=== PATIENT | female | born 1955 | race Caucasian/White ===

== ENCOUNTER 2019-07-01 08:16 | Inpatient (IN) | payer OTHER ==
[2019-06-20 10:43] LABS: ABSOLUTE BASOPHILS 0.1 thou/uL (0.0-0.2); ABSOLUTE EOSINOPHILS 0.2 thou/uL (0.0-0.7); ABSOLUTE LYMPHOCYTES 2.1 thou/uL (0.8-5.3); ABSOLUTE MONOCYTES 0.7 thou/uL (0.0-1.2); ABSOLUTE NEUTROPHILS 4.3 thou/uL (1.6-8.1); BASOPHILS 0.8 %; EOSINOPHILS 2.4 %; HEMATOCRIT 39.1 % (37.0-47.0); HEMOGLOBIN 13.2 gm/dL (12.0-15.0); LYMPHOCYTES 28.6 %; MCHC 33.7 g/dL (28.0-37.0); MCV 88.9 fL (80.0-100.0); MONOCYTES 10.1 %; MPV 7.9 fl. (7.2-11.1); NUCLEATED RBCS 0 /100WBC; PLATELET COUNT* 294 thou/uL (150-400); POLYS 58.1 %; RDW-CV 14.1 % (10.5-14.5); WBC 7.3 thou/uL (4.0-11.0)
[2019-06-20 10:53] LABS: APTT 25.1 Seconds (25.0-31.3); INR 1.1; PROTIME 10.9 Seconds (9.20-11.50)
[2019-06-20 10:56] LABS: CHOLESTEROL 162 mg/dL (<200); HDL CHOLESTEROL 59 mg/dL (>40); LDL CHOLESTEROL 82 mg/dL (<100); TC:HDL 2.7 Ratio (Not establshd); TRIGLYCERIDE 109 mg/dL (<150); VLDL 22 mg/dL (<40)
[2019-06-20 10:57] LABS: ALBUMIN 3.8 g/dL (3.4-5.0); CREATININE 0.8 mg/dL (0.6-1.3); POTASSIUM 3.9 mmol/L (3.5-5.1); SERUM ASSESSMENT Clear; TOTAL BILIRUBIN 0.8 mg/dL (<0.1-1.0); TOTAL PROTEIN 7.5 g/dL (6.4-8.2)
[2019-06-20 11:51] LABS: ESR (SEDRATE) 12 mm/hr (0-30)
[2019-06-21 02:07] LABS: GLYCOHEMOGLOBIN (HGB A1C) 5.7 % (4.8-5.6)
[~2019-07-01] VITALS: Ht 162.6 cm; Wt 120.2 kg
[~2019-07-01 08:16] MED LIST: PLAQUENIL200 MG PO; PRAVASTATIN SOD40 MG PO; PROTONIX40 M2 PO; TOPROL XL100 MG PO; TYLENOL WITH CO1 TA1 PO
[2019-07-01 10:00] VITALS: BP 159/62
--- NOTE | 2019-07-01 17:50 | NUR ---
PT ARRIVED TO UNIT FROM PACU ABOUT 1600. PT STABLE. VITALS STABLE. A&Ox4. DRESSING C/D/I. TEDs, SCDs AND ICE IN PLACE. ON 3LO2 WITH CONTINUOUS PULSE OX. DENIED PAIN. HAS NOT GOT UP. HAS NOT PEED. TOLERATING DIET. FALL PRECAUTIONS IN PLACE. CALL LIGHT SHASHA GOSS. WILL CONTINUE TO MONITOR.
[2019-07-01 18:52] VITALS: BP 152/65
[2019-07-01 20:20] VITALS: BP 167/82
[2019-07-02] VITALS: BP 112/55
[2019-07-02 04:00] VITALS: BP 169/61
--- NOTE | 2019-07-02 05:10 | NUR ---
ASSUMED CARE OF PT 07/01/19 AT APPROX 1930, PT A&OX4, PT ON O2 2L NC WITH CONTINUOUS PULSE OX, ON-Q PUMP IN PLACE, PAIN MEDS REQUESTED AND GIVEN ORDERED, ASSESSMENTS AND HOURLY ROUNDINGS COMPLETED, WILL CONTINUE TO MONITOR.
[2019-07-02 07:43] LABS: HEMATOCRIT 32.7 % (37.0-47.0); HEMOGLOBIN 11.2 gm/dL (12.0-15.0)
[2019-07-02 08:00] VITALS: BP 147/62
[2019-07-02] MEDS ORDERED: TRAMADOL 50 MG50 MG PO (10:10)
[2019-07-02] MEDS ORDERED: ELIQUIS5 MG PO (10:10)
[2019-07-02] MEDS ORDERED: OXYCODONE HCL 55 MG PO (10:10)
--- NOTE | 2019-07-02 15:30 | NUR ---
SPOKE WITH PT. SHE WAS IN [facility]. SHE IS PLANNING ON GOING HOME TODAY. WOULD LIKE TO USE HOME HEALTH INITIALLY AND THEN DO OUTPT.AT SOME POINT. SHE CHOSE [facility] FOR HH. FAXED REFERRAL INFORMATION AND DISCHARGE ORDERS FROM [facility] AND DISCHARGE SUMMARY FROM TO [facility]. RECEIVED CONFIRMATION FROM ALANNAH THAT THEY WILL SEE HER TOMORROW. CM CALLED IN PRESCRIPTION FOR [facility]ITTEN TO [facility] FOR PT. COPAY IS $21. PT.INFORMED. SHE SAID HE SISTER IN LAW WAS HERE FROM [place] AND WILL BE STAYING WITH HER FOR 2 WEEKS TO HELP HER NEEDED. PT.IS NORMALLY INDEPENDENT AT HOME. NEEDS A FRONT WHEEL WALKER FOR HOME. [employer] AUTH'D HER TO HAVE ONE. FAXED HER ORDER AND FACE SHEET. GAVE ORDER TO REMOTELY PILOTED VEHICLE CONTROLLER. HE WILL DISPENSE A FWW PRIOR TO HER DISCHARGE.
[2019-07-02 15:47] VITALS: BP 147/62
[2019-07-02 16:00] VITALS: BP 144/54
--- NOTE | 2019-07-02 16:34 | NUR ---
ASSUMMED CARE OF PT AT 0730, PT ALERT AND ORIENTED, PT TRANSFERS WITH GB WALKER AND ASSIST OF 1, UP IN CHAIR FOR SEVERAL HOURS, C/O PAIN IN LEFT KNEE, MEDICATED PER ORDER, ICE APPLIED TO KNEE, TEDS ON, DRESSING C.D.I, ON Q INTACT, TAKING FOOD AND FLUIDS WELL, DENIES NAUSEA, VSS, TOLERATED THERAPIES, HOURLY ROUNDING COMPLETED, ASSESSMENT COMPLETE, WILL CONTINUE TO MONITOR UNTIL DISCHARGE, DISCHARGE ORDERS OBTAINED, INSTRUCTED ON FOLLOW UP APPTS, WHEN TO CALL PHYSICIAN, DIET, ACTIVITY, ON Q , HOME HEALTH, FALL PRECAUTIONS, PT WILL BE DISCHARGED PER DANIELLA WITH SISTER IN LAW WHEN SHE ARRIVES.
--- NOTE | 2019-07-03 13:43 | EKG ---
[place] [address] ELECTROCARDIOGRAM REPORT Name: MÓNICA ALICEA Room: [address]#: [id number] Admission: 07/01/19 Attend Phys: Franco Parra Discharge: 07/02/19 Date of : 51 Report #: [id number] THIS REPORT FOR: //name// [facility] Test Date: 2019-06-20 Test Time: 09:35:59 Pat Name: MÓNICA ALICEA Department: Room: Gender: Playroom Attendant: : 1955 Requested By: Azam Smith Order Number: [id number] Clyde MD: Dayron Lee Measurements Intervals [place] Rate: 62 P: 86 ME: 161 QRS: 49 QRSD: 87 T: 34 QT: 430 QTc: 437 Interpretive Statements Sinus rhythm No previous ECG available for comparison Electronically Signed On 06-20-2019 13:16:16 GRAIN PROCESSOR by Dayron Lee [email or web address] <ELECTRONICALLY SIGNED> By: Dayron Lee MD, [facility] 06/20/19 1316 0935 0935 Dayron Lee MD, [facility] /EPI
--- NOTE | 2019-07-03 16:20 | OP ---
[address] [address] OPERATIVE REPORT Name: NIXONMÓNICA August Room: [address]#: [id number] Admission: 07/01/19 Attend Phys: Franco Parra Discharge: 07/02/19 Date of : 51 Report #: [id number] THIS REPORT FOR: //name// cc: Amaury Abreu MD, Chrisitina D. MD ~ THIS REPORT FOR: //name// CC: Amaury Haider DATE OF SERVICE: 07/01/2019 PREOPERATIVE DIAGNOSIS: Advanced degenerative joint disease, left knee. POSTOPERATIVE DIAGNOSIS: Advanced degenerative joint disease, left knee. OPERATION PERFORMED: Left total knee arthroplasty. ORTHOPEDIC IMPLANTS: Left total knee arthroplasty using Biomet Bering Mediaguard system with the following components: a. A size 65 CR femur. b. A 71-mm tibial plate with locking bar. c. A 12-mm anterior stabilized tibial bearing with E1. d. A 31-mm asymmetric patella. e. Two bags of Palacos bone cement. SURGEON: Azam Smith D.O. SECOND CRYSTAL MACHINING COORDINATOR: Victoria Au PA-C, Mustapha James D.O., and Sulaiman Camp D.O. ANESTHESIA: General with a regional adductor canal nerve block by Anesthesia. ESTIMATED BLOOD LOSS: 225 mL. DRAINS: None. SPECIMENS: None. COMPLICATIONS: None. CONDITION OF THE PATIENT: Stable. DISPOSITION: [place] [address] OPERATIVE REPORT Name: NIXONMÓNICA August Room: [address] IN R.#: [id number] Admission: 07/01/19 Attend Phys: Franco Parra Discharge: 07/02/19 Date of : 51 Report #: [id number] ANTIBIOTICS: Ancef 2 g IV piggyback prior to the procedure. INDICATIONS FOR SURGERY: The patient is a pleasant 64-year-old female who has been followed in the orthopedic clinic for evaluation of her degenerative joint disease of her knees. She had tried and failed conservative treatment options consisting of up to 3 months of activity modification, low-impact exercises, weight loss, anti-inflammatories, and steroid injections. She was informed of the potential for a total knee arthroplasty and she demonstrated interest. She was informed of all the risks, benefits, complications, and alternatives to this procedure understanding possible complications of infection, neurovascular injury, DVT, PE, fracture, need for revision surgery, arthrofibrosis, complications with anesthesia, , and other imponderables. She demonstrated good understanding and signed the consent prior to the procedure. OPERATIVE FINDINGS: Upon the arthrotomy, there were tricompartmental degenerative changes with eburnated bone and osteophytic lipping throughout. Synovial joint fluid was normal appearing. DESCRIPTION OF PROCEDURE: The patient was taken to the preoperative suite and the correct left knee was marked. The patient was given the benefit of adductor canal nerve block by Anesthesia. She was then taken to the operating room and placed supine on a well-padded table. She had a general anesthetic. A well-padded tourniquet was then applied to the left upper thigh; however, the tourniquet was not utilized for the procedure. Next, the left lower extremity was sterilely prepped and draped in a standard fashion. At this time, a surgical timeout was performed indicating the correct patient, operative site, and procedure to be performed as well as the administration of antibiotics. All in the room were in agreement and we elected to proceed. The anterior midline incision was made with a #20 blade and this was taken down through the skin and subcutaneous tissue to the capsule. Next, the medial parapatellar arthrotomy was performed using a #10 blade scalpel. The patella was then everted and the knee was brought into flexion. Excessive Hoffa's fat pad as well as anterior horn of the menisci were excised. Hohmann retractors were used for visualization and at this point, the intramedullary reamer was used through the distal femur. Next, the distal femur intramedullary alignment guide was placed and a resection of 5 degrees of valgus and 11 mm resection from the distal femur was taken. Next, attention was turned to the proximal tibia and the extramedullary guide was placed. An 8-mm resection was taken from the proximal tibia in the standard fashion. Next, the knee was brought into extension and found to have adequate cap opening to allow for a 10-mm block spacer. At this time, the knee was brought back into flexion and the AP sizer for the distal femur was utilized. The external rotation holes were drilled and the 4-in-1 cutting block was just positioned. Anterior and posterior chamfer cuts were then made in a standard fashion. At this point, the trial tibia and trial femur could be placed as well as the trial polyethylene. A 10-mm poly allowed full extension, but there was some laxity noted with varus and valgus stress as well [address] [address] OPERATIVE REPORT Name: MÓNICA ALICEA Room: [address] [place] Josep#: [id number] Admission: 07/01/19 Attend Phys: Franco Parra Discharge: 07/02/19 Date of : 51 Report #: [id number] as flexion and extension gaps and then a 12-mm trial poly was utilized and this provided excellent stability throughout. At this point, our attention was turned to the patella. It was denervated with electrocautery and then reamed in standard fashion, resecting the appropriate amount of bone. A patellar sizer was used and 31-mm drill holes were placed. The trial patella was positioned and noted to track well. At this time, the patella and distal femur trials were removed and the proximal tibia was reamed and the cruciform punch was utilized. The trial tibia was then removed. Electrocautery was used on the capsule and we had good hemostasis. The posterior capsule was injected with the orthopedic cocktail in a standard fashion. The bone cement was then prepared on the back table. Once the bone ends were dried, we then proceeded with cementing in the standard fashion starting with the tibia, followed by the femur, and lastly the patella. Once again, the trial size 12-mm poly provided excellent stability and the final 12-mm poly was inserted with the locking bar, which clipped in nicely. All of the excess cement was removed. The joint was thoroughly irrigated one last time. Vancomycin powder was placed into the joint. Closure consisted of closing the capsule with #1 Vicryl in a [id number]-[id number]-rmyzo fashion followed by a running #1 Quill. Next, the subcutaneous tissue was irrigated and this was closed using 2-0 Monocryl in a simple inverted suture fashion. The subcuticular layer was closed with 3-0 Monocryl and then Dermabond skin glue was applied. Mepilex dressing followed by RIANNA hose was then placed. Needle and sponge counts were correct x2. ATTESTATION: I attest that Dr. Azam Smith was present throughout all critical aspects of the procedure. POSTOPERATIVE COURSE: The patient will be admitted. I expect at least 1 midnight to work with the Physical Therapy tomorrow. Also, we will initiate mechanical and chemical DVT prophylaxis. Standard pain control regimen and the patient will follow up in the Orthopedic Clinic in 2 weeks. <ELECTRONICALLY SIGNED> By: Evin Reilly DO 07/03/19 1620 1701 2036Azam Smith DO /nt
== END 2019-07-02 18:00 | disposition home health service (06) | DRG 470 ==
LOC: M.PRE 08:16 → M.TBA 09:58 → M.PRE 10:13 → M.ORTHSURG 14:30 → M.TBA 14:30 → M.PRE 14:51 → M.ORTHSURG 16:01
PROVIDERS: Orthopaedic Surgery; ADMIT Internal Medicine
PROC: 0SRD0J9 Replacement of Left Knee Joint with Synthetic Substitute, Cemented, Open Approach (ICD-10-PCS; principal; 2019-07-01)
PROC: 3E0T3BZ Introduction of Anesthetic Agent into Peripheral Nerves and Plexi, Percutaneous Approach (ICD-10-PCS; 2019-07-01)
PROC: 5A09357 Assistance with Respiratory Ventilation, Less than 24 Consecutive Hours, Continuous Positive Airway Pressure (ICD-10-PCS; 2019-07-01)
DX: M17.12 Unilateral primary osteoarthritis, left knee (principal); Z68.42 Body mass index [BMI] 45.0-49.9, adult; D62 Acute posthemorrhagic anemia; E66.01 Morbid (severe) obesity due to excess calories; M06.9 Rheumatoid arthritis, unspecified; I10 Essential (primary) hypertension; E78.5 Hyperlipidemia, unspecified; E78.00 Pure hypercholesterolemia, unspecified; G47.33 Obstructive sleep apnea (adult) (pediatric); E11.9 Type 2 diabetes mellitus without complications; E03.9 Hypothyroidism, unspecified; K21.9 Gastro-esophageal reflux disease without esophagitis; Z88.8 Allergy status to other drugs, medicaments and biological substances; Z79.899 Other long term (current) drug therapy; Z90.49 Acquired absence of other specified parts of digestive tract; Z90.710 Acquired absence of both cervix and uterus; Z72.89 Other problems related to lifestyle

== ENCOUNTER 2019-11-04 07:52 | Inpatient (IN) | payer OTHER ==
[2019-10-30 09:40] LABS: ABSOLUTE BASOPHILS 0.1 thou/uL (0.0-0.2); ABSOLUTE EOSINOPHILS 0.2 thou/uL (0.0-0.7); ABSOLUTE MONOCYTES 0.8 thou/uL (0.0-1.2); ABSOLUTE NEUTROPHILS 4.5 thou/uL (1.6-8.1); BASOPHILS 1.1 %; EOSINOPHILS 2.2 %; HEMATOCRIT 39.3 % (37.0-47.0); HEMOGLOBIN 13.3 gm/dL (12.0-15.0); LYMPHOCYTES 27.1 %; MCH 29.1 pg (26.0-34.0); MCHC 33.9 g/dL (28.0-37.0); MONOCYTES 10.4 %; MPV 7.6 fl. (7.2-11.1); NUCLEATED RBCS 0 /100WBC; PLATELET COUNT* 260 thou/uL (150-400); POLYS 59.2 %; RBC 4.57 mil/uL (4.20-5.00); RDW-CV 15.1 % (10.5-14.5); WBC 7.6 thou/uL (4.0-11.0)
[2019-10-30 09:47] LABS: INR 1.1; PROTIME 10.9 Seconds (9.20-11.50)
[2019-10-30 09:51] LABS: ALBUMIN 3.7 g/dL (3.4-5.0); CALCIUM 8.8 mg/dL (8.5-10.1); CREATININE 0.9 mg/dL (0.6-1.3); POTASSIUM 3.7 mmol/L (3.5-5.1); TOTAL BILIRUBIN 0.6 mg/dL (<0.1-1.0); TOTAL PROTEIN 7.6 g/dL (6.4-8.2)
[2019-10-30 11:01] LABS: ESR (SEDRATE) 13 mm/hr (0-30)
[2019-10-31 02:07] LABS: GLYCOHEMOGLOBIN (HGB A1C) 5.9 % (4.8-5.6)
[~2019-11-04] VITALS: Ht 162.6 cm; Wt 120.2 kg
[~2019-11-04 07:52] MED LIST changes: +ASPIRIN325 PO; +ELIQUIS5 MG PO; +NORCO 5-325 TA1 EAC1 PO; +OXYCODONE HCL 55 MG PO; +TRAMADOL 50 MG50 MG PO
[2019-11-04 10:15] VITALS: BP 146/79
--- NOTE | 2019-11-04 15:26 | OP ---
[address] [address] OPERATIVE REPORT Name: NIXONMÓNICA Dillon Room: [address] IN [facility]#: [id number] Admission: 11/04/19 Attend Phys: Franco Parra Discharge: Date of : 51 Report #: [id number] THIS REPORT FOR: //name// cc: Amaury Abreu MD, Chrisitina D MD ~ THIS REPORT FOR: //name// CC: Amaury Haider DICTATED BY: Caesar Negron DO DATE OF SERVICE: 11/04/2019 PREOPERATIVE DIAGNOSIS: Advanced degenerative joint disease, right knee. POSTOPERATIVE DIAGNOSIS: Advanced degenerative joint disease, right knee. PROCEDURE PERFORMED: Right total knee arthroplasty using the Biomet Vanguard system with the following components: 1. A 65 CR femoral component. 2. A 71 tibial baseplate. 3. A 12 mm vitamin E-infused polyethylene. 4. A 31 asymmetric patella. 5. Two bags of Biomet bone cement. SURGEON: Azam Smith DO ASSISTANTS: Caesar Negron DO and Justice Hoff DO ANESTHESIA: General with continuous nerve block. ESTIMATED BLOOD LOSS: 175. COMPLICATIONS: None. SPECIMENS: None. DISPOSITION: Stable to PACU. ANTIBIOTICS: 3 grams IV Ancef preop. TOURNIQUET TIME: 47 minutes at 300 mmHg. INDICATIONS: The patient is a 64-year-old female who we follow in clinic for [address] [address] OPERATIVE REPORT Name: NIXONMÓNICA E Room: [address] IN .R.#: [id number] Admission: 11/04/19 Attend Phys: Franco Parra Discharge: Date of : 51 Report #: [id number] quite some time regarding right knee pain. She has failed all conservative measures. She continues to have pain on a daily basis. This is interfering with her ability to perform her ADLs. Therefore, discussed that she undergo a total knee arthroplasty. INTRAOPERATIVE FINDINGS: Upon operative inspection of the right knee, she was found to have normal-appearing joint effusion. Hypertrophic synovitis was present. Significant osteophyte formation and subchondral sclerosis with eburnation of bone, greatest in the medial side. DESCRIPTION OF PROCEDURE: The patient was seen in the preoperative area where written consent was obtained. The operative site was marked. She was brought back to the operative suite and placed supine on a well-padded operative table. She was given the benefit of general anesthesia. A well-padded pneumatic tourniquet was placed in the right proximal thigh. The right lower extremity was prepped and draped in normal sterile fashion. Surgical timeout was performed. Correct side, site, and procedure were verified. Everyone present was in agreement. Procedure began with inflation of the tourniquet at 300 mmHg after gravity exsanguination. This was deflated at the end of procedure for a total time 47 minutes. Sharp dissection through skin down to the level of capsule. New blade was used to create a standard medial parapatellar arthrotomy. Medial capsular sleeve was created. Anterior horn of the medial and lateral menisci were incised. The patella was everted. Fat pad was excised. The drill was used to localize the femoral canal. The intramedullary guide was utilized and the distal femoral cutting block was pinned into place in 5 degrees of valgus. Cut was made in standard fashion. Excess bone was removed. We turned our attention to the tibia. The extramedullary guide was aligned along the tibial crest, center of the ankle, and second ray. This was pinned into place, measuring 10 mm off the high lateral side. The cut was made and excess bone was removed. The knee was brought to full extension and the 10 block was able to be inserted. We then returned our attention to the femur. A-P sizing guide measured a 65. The 4-in-1 cutting block was pinned into place. Cuts were made in standard fashion. The remainder of the menisci were excised using Bovie electrocautery as was the ACL and PCL. The tibia sized 71 and this was pinned into place. The trial femoral component was inserted. A 10 mm poly was trialed. Full range of motion, symmetric gaps, slightly lax. We trialed a 12, which allowed for full flexion and extension with symmetric gaps and good balance. Patella was prepped using the reaming system. It measured a 31. Three peg holes were drilled. The patella tracked well. Trial components were removed. The lugs were drilled for the femur. The tibia was prepped in standard fashion with a drill followed by the cruciform punch. All bone ends were thoroughly irrigated with pulsatile lavage. The final components were opened and cement was mixed on the back table. The final components were impacted into place and excess cement was removed. The 12 mm poly was trialed. Again, allowed for full flexion and extension with good balancing. The final 12 mm poly was inserted. The bar was applied in standard fashion. The tourniquet [address] [address] OPERATIVE REPORT Name: MÓNICA ALICEA Room: [address] [place] [facility]#: [id number] Admission: 11/04/19 Attend Phys: Franco Parra Discharge: Date of : 51 Report #: [id number] was deflated for a total time 47 minutes. Adequate hemostasis was achieved. Vancomycin powder was introduced into the joint as well as the surrounding soft tissues. Knee was brought to 90 degrees of flexion. The capsular tissue was closed with #1 Vicryl in odbexd-bq-exfrq fashion, reinforced with a running #1 Stratafix. The tissue was again thoroughly irrigated. Subcutaneous tissue was closed with 2-0 Monocryl in a simple inverted interrupted fashion. This was reinforced with a running 3-0 Stratafix and Dermabond skin glue. Sterile Mepilex was applied. The patient was awoken from anesthesia and transferred to PACU in stable condition. There were no complications. Needle and sponge counts were correct x 2. Dr. Smith was present for all critical aspects of the case. <ELECTRONICALLY SIGNED> By: Azam Smith DO 11/04/19 1526 1349 [id number] Smith DO /nt
[2019-11-04 15:30] VITALS: BP 130/57
--- NOTE | 2019-11-04 16:05 | NUR ---
PT ADMITTED POST OP SURGERY. PT ALERT AND ORIENTED AND DROWSY. FAMILY AT BEDSIDE. PT ORIENTED TO ROOM. PT GIVEN CALL LIGHT AND EDUCATED ON USING IT WHEN NEEDING ASSISTANCE. PT C/O NAUSEA, MEDS AND EMESIS BAG PROVIDED. FALL RISK PRECAUTIONS IN PLACE. WILL CONTINUE TO MONITOR.
[2019-11-04 17:26] VITALS: BP 126/70
--- NOTE | 2019-11-04 17:35 | NUR ---
PT REMAINED ALERT AND ORIENTED. PT RESTING IN BED. PT STATES NAUSEA MEDS HELPED. PT DENIES ANY PAIN, PT STATES THEY WANT TO REST. PT EDUCATED ON USING CALL LIGHT WHEN NEEDING ASSISTANCE. FALL RISK PRECAUTIONS IN PLACE. HOURLY ROUNDING COMPLETED. WILL CONTINUE TO MONITOR.
[2019-11-04 19:58] VITALS: BP 137/67
[2019-11-05] VITALS: BP 125/53
[2019-11-05 04:00] VITALS: BP 113/71
[2019-11-05 05:56] LABS: HEMATOCRIT 32.2 % (37.0-47.0); HEMOGLOBIN 11.2 gm/dL (12.0-15.0)
--- NOTE | 2019-11-05 06:10 | NUR ---
PAIN WELL MANAGED. ON 3L O2. UP TO COMMODE WITH ASSISTANCE SEVERAL TIMES. RECEIVED OXYCODONE 10 MG FOR PAIN. RECEIVED ALL FLUIDS AND ABX SCHEDULED. ON Q PUMP IN PLACE. ICE PACKS, NO DRAINING ISSUES. NO WORSENING OF PAIN OR REPORTS OF NAUSEA. WILL CONTINUE TO FOLLOW PLAN OF CARE.
[2019-11-05 07:10] VITALS: BP 128/53
[2019-11-05] MEDS ORDERED: ELIQUIS2.5 MG PO (09:17)
[2019-11-05] MEDS ORDERED: OXYCODONE HCL 55 MG PO (09:18)
[2019-11-05] MEDS ORDERED: COLACE100 MG PO (09:21)
[2019-11-05] MEDS ORDERED: TYLENOL325 MG PO (09:27)
[2019-11-05] MEDS ORDERED: MILK OF MA2400 MG/11 PO (09:27)
[2019-11-05] MEDS ORDERED: METAMUCIL1 EAC1 PO (09:28)
[2019-11-05 09:34] VITALS: BP 128/53
--- NOTE | 2019-11-05 12:11 | NUR ---
PT.UP IN CHAIR, WAITING FOR THERAPY. SHE LIVES ALONE. HER SISTER IS COMING FROM [place] TO STAY WITH HER FOR LONG SHE NEEDS HER. HAS A FRONT WHEEL WALKER IN ROOM FROM HOME. RN CALLED IN [facility] PRES[facility] TO [facility]ARMACY TO CHECK COPAY. PT.WANTS TO USE HOME HEALTH FOR FIRST 2 WEEKS. [facility] SHE USED THEM BEFORE. REQUESTS HONG. PUT ON REFERRAL. FAXED ORDERS AND REFERRAL INFORMATION TO [facility]. THEY WILL CALL HER TOMORROW TO SET UP APPTS.
--- NOTE | 2019-11-05 12:41 | NUR ---
RECIEVED O.T. ORDERS. WILL DEFER TO P.T. AT THIS TIME. PLEASE ORDER FURTHER O.T. SERVICES IF NEEDED.
[2019-11-05 12:47] VITALS: BP 128/53
--- NOTE | 2019-11-05 12:47 | NUR ---
PT REMAINED ALERT AND ORIENTED. PT GIVEN DISCHARGE INFORMATION, CARE NOTES, AND PRESCRIPTIONS. IV REMOVED. 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 PT DENIED ANY FURTHER QUESTIONS OR CONCERNS. FALL RISK PRECAUTIONS IN PLACE. HOURLY ROUNDING COMPLETED. PT LEFT VIA WHEELCHAIR WITH NURSING STAFF TO HOME WITH HOME HEALTH.
== END 2019-11-05 12:49 | disposition home health service (06) | DRG 470 ==
LOC: M.PRE 07:52 → EDSTATUS 07:53 → M.PRE 07:55 → M.TBA 09:01 → M.PRE 11:09 → M.TBA 11:45 → M.ORTHSURG 11:45 → M.PRE 14:54 → M.ORTHSURG 11-05 12:49
PROVIDERS: Orthopaedic Surgery; ADMIT Internal Medicine; ATTEND Internal Medicine
PROC: 0SRC0J9 Replacement of Right Knee Joint with Synthetic Substitute, Cemented, Open Approach (ICD-10-PCS; principal; 2019-11-04)
PROC: 3E0T3BZ Introduction of Anesthetic Agent into Peripheral Nerves and Plexi, Percutaneous Approach (ICD-10-PCS; principal; 2019-11-04)
PROC: 5A09357 Assistance with Respiratory Ventilation, Less than 24 Consecutive Hours, Continuous Positive Airway Pressure (ICD-10-PCS; 2019-11-04)
DX: M17.11 Unilateral primary osteoarthritis, right knee (principal); Z68.42 Body mass index [BMI] 45.0-49.9, adult; I10 Essential (primary) hypertension; K21.9 Gastro-esophageal reflux disease without esophagitis; E78.00 Pure hypercholesterolemia, unspecified; M06.9 Rheumatoid arthritis, unspecified; Z96.652 Presence of left artificial knee joint; G47.33 Obstructive sleep apnea (adult) (pediatric); E03.9 Hypothyroidism, unspecified; E78.5 Hyperlipidemia, unspecified; E66.01 Morbid (severe) obesity due to excess calories; Z79.01 Long term (current) use of anticoagulants; Z79.899 Other long term (current) drug therapy; Z90.49 Acquired absence of other specified parts of digestive tract; Z90.710 Acquired absence of both cervix and uterus; Z72.89 Other problems related to lifestyle; Z03.818 Encounter for observation for suspected exposure to other biological agents ruled out